=== PATIENT | female | born 1995 | race Caucasian/White ===

== ENCOUNTER 2021-02-10 11:54 | Emergency (ER) | payer OTHER ==
[2021-02-10] MEDS ORDERED: SILVADENE CREAM20 GM TOP (12:28)
[2021-02-10] MEDS ORDERED: IBU800 MG PO (12:28)
== END 2021-02-10 13:00 | disposition home or self-care (01) ==
LOC: ER1 11:54
DX: T23.102A Burn of first degree of left hand, unspecified site, initial encounter (principal); T31.0 Burns involving less than 10% of body surface; Z32.01 Encounter for pregnancy test, result positive; N91.1 Secondary amenorrhea; Z23 Encounter for immunization
CPT/HCPCS: 16000; 84703; 90471; 90715; 99283; J1885

== ENCOUNTER 2021-03-07 12:33 | Emergency (ER) | payer OTHER ==
[~2021-03-07 12:33] MED LIST: IBU800 MG PO; SILVADENE CREAM20 GM TOP
[2021-03-07 14:03] LABS: HEMOGLOBIN 11.5 gm/dl (12.3-15.3); RED BLOOD COUNT 4.05 M/UL (4.00-5.10); WHITE BLOOD COUNT 11.7 K/UL (4.5-11.0)
[2021-03-07 14:31] LABS: BUN/CREATININE RATIO 10 (0-10)
== END 2021-03-07 15:37 | disposition home or self-care (01) ==
LOC: ER1 12:33
PROVIDERS: Family Medicine
DX: O99.013 Anemia complicating pregnancy, third trimester (principal); O99.891 Other specified diseases and conditions complicating pregnancy; R42 Dizziness and giddiness
CPT/HCPCS: 80053; 81001; 85025; 87086; 93005; 99284

== ENCOUNTER 2021-04-13 09:21 | Outpatient (CLI) | payer OTHER ==
[~2021-04-13] VITALS: Ht 167.6 cm; Wt 102.5 kg
== END 2021-04-13 14:51 | disposition home or self-care (01) ==
LOC: GENOP 09:21
DX: O47.1 False labor at or after 37 completed weeks of gestation (principal); Z3A.37 37 weeks gestation of pregnancy
CPT/HCPCS: 81001; 87086; 96360; 96361; 96367; 96374; J0696; J7030

== ENCOUNTER 2021-04-16 10:33 | Outpatient (CLI) | payer OTHER | END 2021-04-16 13:34 | disposition home or self-care (01) | LOC: GENOP 10:33 | DX: O47.1 False labor at or after 37 completed weeks of gestation (principal); Z3A.38 38 weeks gestation of pregnancy | CPT/HCPCS: G0463 ==

== ENCOUNTER 2021-04-21 05:52 | Inpatient (IN) | payer OTHER ==
[2021-04-21 07:03] LABS: RED BLOOD COUNT 4.24 M/UL (4.00-5.10); WHITE BLOOD COUNT 10.6 K/UL (4.5-11.0)
[2021-04-22] MEDS ORDERED: IBUPROFEN800 MG PO (13:38)
== END 2021-04-22 14:35 | disposition home or self-care (01) | DRG 805 ==
LOC: OB 05:52
PROVIDERS: Obstetrics & Gynecology; ADMIT Obstetrics & Gynecology
PROC: 10H07YZ Insertion of Other Device into Products of Conception, Via Natural or Artificial Opening (ICD-10-PCS; principal; 2021-04-21)
PROC: 10E0XZZ Delivery of Products of Conception, External Approach (ICD-10-PCS; 2021-04-21)
PROC: 0HQ9XZZ Repair Perineum Skin, External Approach (ICD-10-PCS; 2021-04-21)
PROC: 10907ZC Drainage of Amniotic Fluid, Therapeutic from Products of Conception, Via Natural or Artificial Opening (ICD-10-PCS; 2021-04-21)
DX: O98.82 Other maternal infectious and parasitic diseases complicating childbirth (principal); U07.1 COVID-19; Z37.0 Single live birth; O98.52 Other viral diseases complicating childbirth; B95.1 Streptococcus, group B, as the cause of diseases classified elsewhere; O70.0 First degree perineal laceration during delivery; Z3A.35 35 weeks gestation of pregnancy; Z98.890 Other specified postprocedural states
CPT/HCPCS: 36415; 51702; 81001; 82800; 85014; 85018; 85025; J2795; U0003

== ENCOUNTER 2021-08-08 10:46 | Emergency (ER) | payer OTHER ==
[~2021-08-08 10:46] MED LIST changes: +IBUPROFEN800 MG PO
== END 2021-08-08 12:40 | disposition home or self-care (01) ==
LOC: ER1 10:46
DX: M79.672 Pain in left foot (principal); M79.675 Pain in left toe(s)
CPT/HCPCS: 73630; 99283

== ENCOUNTER 2022-01-02 15:05 | Emergency (ER) | payer OTHER ==
[2022-01-02 16:51] LABS: HEMOGLOBIN 12.4 gm/dl (12.3-15.3); RED BLOOD COUNT 5.22 M/UL (4.00-5.10); WHITE BLOOD COUNT 12.4 K/UL (4.5-11.0)
[2022-01-02 17:49] LABS: BUN/CREATININE RATIO 15 (0-10)
[2022-01-02] MEDS ORDERED: ZOFRAN 4 MG TAB4 MG PO (19:04)
[2022-01-03] MEDS ORDERED: MACROBID 100 M100 MG PO (00:39)
== END 2022-01-02 19:15 | disposition home or self-care (01) ==
LOC: ER1 15:05
PROVIDERS: Physician Assistant
DX: R82.81 Pyuria (principal); R11.10 Vomiting, unspecified; R42 Dizziness and giddiness
CPT/HCPCS: 80053; 81001; 82550; 82553; 84484; 84703; 85025; 87086; 93005; 96374; 99284; J2405; J7030